=== PATIENT | male | born 1965 | race Two or more races ===

== ENCOUNTER 2024-05-09 11:34 | Emergency (ER) | payer MEDICAID, OTHER ==
[~2024-05-09] VITALS: Ht 170.2 cm; Wt 73.3 kg
[2024-05-09 14:05] VITALS: BP 157/95; PULSE 77; RESP 18; O2SAT 96
== END 2024-05-09 16:35 | disposition home or self-care (01) ==
LOC: ER 11:34
DX: R22.31 Localized swelling, mass and lump, right upper limb (principal); I12.9 Hypertensive chronic kidney disease with stage 1 through stage 4 chronic kidney disease, or unspecified chronic kidney disease; N18.9 Chronic kidney disease, unspecified; F15.90 Other stimulant use, unspecified, uncomplicated; Z98.890 Other specified postprocedural states